=== PATIENT | female | born 1990 | race Caucasian/White ===

== ENCOUNTER 2017-11-30 06:06 | Day surgery (SDC) | payer BC ==
[2017-11-30 06:37] LABS: HEMATOCRIT 37.7 % (36.0-47.0); HEMOGLOBIN 13.2 g/dl (12.0-16.0); MEAN CORPUSCULAR VOLUME 88.5 fl (80.0-96.0); PLATELET COUNT, AUTOMATED 217 10^3/uL (150-450); RED BLOOD COUNT 4.26 10^6/uL (4.00-5.40); RED CELL DISTRIBUTION WIDTH 11.8 % (11.5-14.5); WHITE BLOOD COUNT 6.8 10^3/uL (4.0-10.0)
[2017-11-30] MEDS ORDERED: MIDAZOLAM INJ 2 MG/2 ML VIAL (J2250) As Ordered (06:44)
[2017-11-30] MEDS ORDERED: fentaNYL 100 MCG/2 ML INJECTION (J3010) As Ordered ×2 (06:45→10:29)
[2017-11-30] MEDS: LR 1,000 ML IV ×4 (06:46→20:45)
[2017-11-30] MEDS ORDERED: PROPOFOL 200 MG/20 ML VIAL As Ordered (06:47)
[2017-11-30] MEDS ORDERED: ROCURONIUM BROMIDE 50 MG/5 ML VIAL As Ordered (06:47)
[2017-11-30] MEDS ORDERED: LIDOCAINE 2% INJ 100 MG/5 ML SDV (FOR ANES.) As Ordered (06:51)
[2017-11-30 07:27] LABS: CONTROL LINE UCG INT CTR LINE PRESENT; URINE PREG TEST NEGATIVE (NEGATIVE)
[2017-11-30] MEDS ORDERED: ONDANSETRON 4MG/2ML VIAL (J2405) As Ordered ×2 (07:51→10:28)
[2017-11-30] MEDS ORDERED: dexameTHASONE 4 MG/ML 1ML VIAL (J1100) As Ordered (07:52)
[2017-11-30] MEDS ORDERED: HYDROmorphone HCL 2 MG/ML 1ML VIAL (J1170) As Ordered (08:09)
[2017-11-30] MEDS ORDERED: GLYCOPYRROLATE INJ 0.2 MG/ML 2 ML VIAL As Ordered (09:39)
[2017-11-30] MEDS ORDERED: NEOSTIGMINE 10 MG/10 ML VIAL (J2710) As Ordered (09:39)
[2017-11-30] MEDS ORDERED: MORPHINE 1MG/ML IN 0.9% NACL 100ML IV BAG As Ordered (10:29)
[2017-11-30] MEDS: fentaNYL 100 MCG/2 ML INJECTION (J3010) IV ×4 (10:35→10:50)
[2017-11-30] MEDS: ONDANSETRON 4MG/2ML VIAL (J2405) IV (10:35)
[2017-11-30] MEDS ORDERED: NALOXONE INJ 0.4 MG/1 ML VIAL (J2310) IV (10:45)
[2017-11-30] MEDS ORDERED: diphenhydrAMINE INJ 50MG/ML VIAL (J1200) IV (10:45)
[2017-11-30] MEDS ORDERED: EPIDURAL/PCA KEYS XX (10:45)
[2017-11-30] MEDS: MORPHINE 1MG/ML IN 0.9% NACL 100ML IV BAG IV (10:45)
[2017-11-30] MEDS ORDERED: NALBUPHINE HCL 10 MG/ML AMP (J2300) IV (10:45)
[2017-11-30] MEDS: MULTIVITAMINS/MINERALS THERAP 1 TAB PO (15:29)
[2017-11-30] MEDS: LACTOBACILLUS ACIDOPHILUS CAP (BACID) PO (15:29)
[2017-11-30] MEDS: IBUPROFEN 600 MG TAB PO (21:59)
[2017-12-01] MEDS: IBUPROFEN 600 MG TAB PO (04:46)
[2017-12-01] MEDS ORDERED: NORCO, ANEXSIA 5/325MG TABLET (HYDROcodone/ACETAMINOPHEN) PO (06:00)
[2017-12-01] MEDS: LR 1,000 ML IV (06:37)
[2017-12-01 07:19] LABS: HEMATOCRIT 35.9 % (36.0-47.0); HEMOGLOBIN 12.2 g/dl (12.0-16.0); MEAN CORPUSCULAR HEMOGLOBIN 30.5 pg (27.0-33.0); MEAN CORPUSCULAR VOLUME 89.8 fl (80.0-96.0); PLATELET COUNT, AUTOMATED 212 10^3/uL (150-450); RED CELL DISTRIBUTION WIDTH 11.9 % (11.5-14.5); WHITE BLOOD COUNT 13.1 10^3/uL (4.0-10.0)
[2017-12-01] MEDS: MULTIVITAMINS/MINERALS THERAP 1 TAB PO (08:17)
[2017-12-01] MEDS: LACTOBACILLUS ACIDOPHILUS CAP (BACID) PO (08:17)
== END 2017-12-01 09:25 | disposition home or self-care (01) ==
LOC: M SDC 06:06 → M PED 12:32
DX: N88.8 Other specified noninflammatory disorders of cervix uteri (principal); N94.10 Unspecified dyspareunia; N92.0 Excessive and frequent menstruation with regular cycle; Z88.2 Allergy status to sulfonamides; F17.210 Nicotine dependence, cigarettes, uncomplicated
CPT/HCPCS: 58552